=== PATIENT | female | born 1995 | race African-American/Black ===

== ENCOUNTER → 2019-03-26 | Outpatient (CLI) | payer OTHER ==
--- NOTE | 2019-03-26 16:06 | REP ---
Right fifth toe series: Five views. History: Crush injury. Findings: There is soft-tissue swelling about a slightly comminuted fracture of the distal phalanx of the great toe. 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 No displacement is seen of the fracture fragments. Impression: Soft-tissue swelling associated with a slightly comminuted fracture of the fused middle and distal phalanges of the right fifth toe. Electronically Signed by Blaine Banerjee MD 03/26/2019 03:57 P
== END ==
LOC: M LRY 15:15
PROVIDERS: ATTEND Nurse Practitioner Family
DX: S92.531A Displaced fracture of distal phalanx of right lesser toe(s), initial encounter for closed fracture (principal); S92.521A Displaced fracture of middle phalanx of right lesser toe(s), initial encounter for closed fracture; W23.0XXA Caught, crushed, jammed, or pinched between moving objects, initial encounter; Y92.9 Unspecified place or not applicable; M79.89 Other specified soft tissue disorders
CPT/HCPCS: 73660; G0463